=== PATIENT | male | born 1990 | race Caucasian/White ===

== ENCOUNTER 2018-05-23 16:42 | Emergency (ER) | payer SELFPAY ==
[2018-05-23 16:59] VITALS: BP 120/69
[2018-05-23] MEDS ORDERED: Azithromycin 250 MG Tab PO ONE (17:19)
--- NOTE | 2018-05-23 17:47 | EDM.PDOC ---
ED HPI GENERAL MEDICAL PROBLEM - General Chief Complaint: Genitourinary Problem Stated Complaint: UTI [id number] Time Seen by Provider: 05/23/18 17:01 Source of Information: Reports: Patient, RN, RN Notes Reviewed History Limitations: Reports: No Limitations - History of Present Illness INITIAL COMMENTS - FREE TEXT/NARRATIVE: Pt to Er with c/o burning with urination for the past 2-3 days. He admits to urgency and frequency. He also admits to being sexually active and is concerned about STI's. He is requesting to be tested. Patient denies fever or chills, N/V/ D. Onset: Gradual Onset Date: 05/20/18 - Related Data Allergies Allergy/AdvReac Type Severity Reaction Status Date / Time Penicillins Allergy Severe Airway Verified 05/23/18 16:57 Tightness Home Meds: Home Meds . [No Known Home Meds] 05/23/18 [History] Past Medical History - Past Health History Medical/Surgical History: Denies Medical/Surgical History Other Musculoskeletal History: broke right toe Social & Family History - Tobacco Use Smoking Status *Q: Current Every Day Smoker Years of Tobacco use: 12 Packs/Tins Daily: 1 - Alcohol Use Days Per Week of Alcohol Use: 7 Number of Drinks Per Day: 4 Total Drinks Per Week: 28 - Recreational Drug Use Recreational Drug Use: No ED ROS GENERAL - Review of Systems Review Of Systems: ROS reveals no pertinent complaints other than HPI. ED EXAM, RENAL/ - Physical Exam Exam: See Below Exam Limited By: No Limitations General Appearance: Alert, WD/WN, No Apparent Distress Eye Exam: Bilateral Eye: EOMI, Normal Inspection Ears: Normal External Exam, Hearing Grossly Normal Nose: Normal Inspection Throat/Mouth: Normal Inspection, Normal Voice, No Airway Compromise Head: Atraumatic, Normocephalic Neck: Normal Inspection, Supple, Non-Tender, Full Range of Motion Respiratory/Chest: No Respiratory Distress, Lungs Clear, Normal Breath Sounds, No Accessory Muscle Use, Chest Non-Tender Cardiovascular: Normal Peripheral Pulses, Regular Rate, Rhythm, No Edema, No Gallop, No JVD, No Murmur, No Rub GI/Abdominal: Normal Bowel Sounds, Soft, Non-Tender (Male) Exam: Deferred Rectal (Males) Exam: Deferred Back Exam: Normal Inspection, Full Range of Motion, NT Extremities: Normal Inspection, Normal Range of Motion, Non-Tender, Normal Capillary Refill, No Pedal Edema Neurological: Alert, Oriented, CN II-XII Intact, Normal Cognition, Normal Gait, Normal Reflexes, No Motor/Sensory Deficits Psychiatric: Normal Affect, Normal Mood Skin Exam: Warm, Dry, Intact, Normal Color, No Rash Lymphatic: No Adenopathy Course - Vital Signs Last Recorded V/S: Last Vital Signs Temp 98.9 F 05/23/18 16:45 Pulse 83 05/23/18 16:45 Resp 16 05/23/18 16:45 BP 120/69 05/23/18 16:45 Pulse Ox 100 05/23/18 16:45 - Orders/Labs/Meds Orders: Active Orders 24 hr Category Date Time Status CHLAMYDIA AND GONORRHEA BY TMA Stat Lab 05/23/18 16:59 Received HBSAG SCREEN [REF] Stat Lab 05/23/18 17:23 Received HEP C VIRUS AB [REF] Stat Lab 05/23/18 17:23 Received RPR (SYPHILIS SERO) W/ RFLX [REF] Stat Lab 05/23/18 17:23 Received Labs: Laboratory Tests 05/23/18 05/23/18 Range/Units 16:59 17:23 Urine Color Yellow (YELLOW) Urine Appearance Clear (CLEAR) Urine pH 5.5 (5.0-9.0) Ur Specific [place] >= 1.030 (1.005-1.030) Urine Protein Negative (NEGATIVE) Urine Glucose (UA) Negative (NEGATIVE) Urine Ketones Negative (NEGATIVE) Urine Occult Blood Small H (NEGATIVE) Urine Nitrite Negative (NEGATIVE) Urine Bilirubin Negative (NEGATIVE) Urine Urobilinogen 0.2 (0.2-1.0) mg/dL Ur Leukocyte Esterase Negative (NEGATIVE) Urine RBC 5-10 H /HPF Urine WBC 5-10 H (0-5/HPF) /HPF Ur Epithelial Cells Few /HPF Urine Bacteria Few (0-FEW/HPF) /HPF Urine Mucus Few H /LPF HIV-1 Antibody Non-reactive (NONREACTIVE) HIV-2 Antibody Non-reactive (NONREACTIVE) HIV P24 Antigen Non-reactive (NONREACTIVE) Meds: Medications Discontinued Medications Generic Name Dose Route Start Last Admin Trade Name Freq PRN Reason Stop Dose Admin Azithromycin 2,000 mg 05/23/18 17:19 05/23/18 17:37 Zithromax PO 05/23/18 17:20 2,000 mg ONETIME ONE Administration Departure - Departure Time of Disposition: 18:27 Disposition: Home, Self-Care 01 Condition: Good Clinical Impression: Possible exposure to STD - Discharge Information *PRESCRIPTION DRUG MONITORING PROGRAM REVIEWED*: No *COPY OF PRESCRIPTION DRUG MONITORING REPORT IN PATIENT RACIEL: No Instructions: Sexually Transmitted Disease, [id number] Referrals: PCP,None [Primary Care Provider] - Forms: ED Department Discharge Additional Instructions: You will be contacted by the hospital infection control nurse with any positive findings RX: Gemifloxicin x 1 Use Condoms! Drink plenty of water - My Orders Last 24 Hours: My Active Orders 05/23/18 16:59 CHLAMYDIA AND GONORRHEA BY TMA Stat 05/23/18 17:23 HBSAG SCREEN [REF] Stat HEP C VIRUS AB [REF] Stat RPR (SYPHILIS SERO) W/ RFLX [REF] Stat - Assessment/Plan Last 24 Hours: My Active Orders 05/23/18 16:59 CHLAMYDIA AND GONORRHEA BY TMA Stat 05/23/18 17:23 HBSAG SCREEN [REF] Stat HEP C VIRUS AB [REF] Stat RPR (SYPHILIS SERO) W/ RFLX [REF] Stat
== END 2018-05-23 18:24 | disposition home or self-care (01) ==
LOC: DL.ED 16:42
DX: Z20.2 Contact with and (suspected) exposure to infections with a predominantly sexual mode of transmission (principal); F17.210 Nicotine dependence, cigarettes, uncomplicated; Z88.0 Allergy status to penicillin
CPT/HCPCS: 81001; 86592; 86803; 87340; 87389; 87491; 87591; 99283; A9270; 36415

== ENCOUNTER 2020-08-29 18:38 | Emergency (ER) | payer SELFPAY | END 2020-08-29 19:04 | disposition left against medical advice (07) | LOC: DL.ED 18:38 | DX: Z53.21 Procedure and treatment not carried out due to patient leaving prior to being seen by health care provider (principal) ==

== ENCOUNTER 2021-12-14 14:54 | Emergency (ER) | payer MEDICAID ==
[2021-12-14 15:16] VITALS: BP 121/73; PULSE 63
== END 2021-12-14 16:27 | disposition home or self-care (01) ==
LOC: DL.ED 14:54
DX: R55 Syncope and collapse (principal); Z88.0 Allergy status to penicillin
CPT/HCPCS: 71045; 93005; 93010; 99284

== ENCOUNTER 2021-12-23 19:53 | Emergency (ER) | payer MEDICAID ==
[2021-12-23 19:33] VITALS: BP 111/76; PULSE 60
[2021-12-23 19:48] LABS: ANION GAP 12.6 mEq/L (7-13)
[2021-12-23] MEDS ORDERED: Sodium Chloride 0.9% 1,000 ML IV ONE (19:54)
== END 2021-12-23 22:23 | disposition home or self-care (01) ==
LOC: DL.ED 19:53
DX: R55 Syncope and collapse (principal); E86.0 Dehydration; F17.210 Nicotine dependence, cigarettes, uncomplicated; Z88.0 Allergy status to penicillin
CPT/HCPCS: 36415; 71045; 80053; 84484; 85025; 93005; 93010; 96360; 96361; 99283; 99285; J7030